=== PATIENT | female | born 1940 | race Caucasian/White ===

== ENCOUNTER → 2016-07-16 | Outpatient (CLI) | payer MEDICARE, OTHER ==
[~2016-07-16] MED LIST: ASCO500C14 PO; ASP81TEC PO; CHOL50003 PO; FLUT1DIS26 IH; LEVO125T PO; NAPR220T76 PO; SRTR100T PO; VITA100C15 PO
--- NOTE | 2016-07-16 14:34 | Diagnostic Imaging Report ---
PROCEDURE: CT chest without contrast. TECHNIQUE: Multiple contiguous axial images were obtained through the chest without the use of intravenous contrast. INDICATION: Lung nodule. Comparison made to study dated 06/09/2015. FINDINGS: There is a 5 mm nodule at the right posterior lung apex that appears unchanged compared to the prior study. There are some patchy alveolar infiltrates at both lung bases and in the lingular segment of the left upper lobe. These were all present previously and appear unchanged. There is no hilar or mediastinal lymphadenopathy. There is a calculus in the dorsal upper pole calyx of the right kidney. IMPRESSION: No change in the chest since 06/09/2015. Dictated by: Dictated on workstation # [id number]
== END | disposition home or self-care (01) ==
LOC: RAD 14:02
PROVIDERS: ATTEND Nurse Practitioner Family
DX: R91.1 Solitary pulmonary nodule (principal)
CPT/HCPCS: 71250

== ENCOUNTER 2017-04-02 22:16 | Emergency (ER) | payer MEDICARE, OTHER ==
[~2017-04-02] VITALS: Ht 165.1 cm; Wt 61.2 kg
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
[2017-04-03] MEDS ORDERED: HYDROcodone/APAP 5 MG/325 MG (LORTAB) TAB PO ONE (00:15)
[2017-04-03] MEDS ORDERED: RX-HYDROCODONE/APAP 5/325 MG #4 TAB PK PO PRN (00:15)
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
[2017-04-03] MEDS ORDERED: HYDR-3812 PO (00:26)
[2017-04-03 00:36] VITALS: BP 0/0
--- NOTE | 2017-04-03 07:45 | Diagnostic Imaging Report ---
INDICATION: Shoulder pain after fall. FINDINGS: Heart size is normal. Lungs are clear. There is some left basilar atelectasis and/or pneumonitis. There is no pleural effusion or pneumothorax. The mediastinum is unremarkable. There is a fracture of the left humeral head and neck. IMPRESSION: Left basilar atelectasis and/or pneumonitis. Mildly comminuted fracture of the left humeral head and neck which is slightly impacted. Dictated by: Dictated on workstation # [id number]
--- NOTE | 2017-04-03 07:59 | Diagnostic Imaging Report ---
INDICATION: Shoulder pain after fall. FINDINGS: There is a comminuted and slightly impacted fracture of the left humeral head and neck. AC joint is unremarkable. There is some left basilar atelectasis and/or pneumonitis. Soft tissues are unremarkable. IMPRESSION: Comminuted and slightly impacted fracture of the left humeral head and neck. Left basilar atelectasis and/or pneumonitis Dictated by: Dictated on workstation # [id number]
== END 2017-04-03 00:36 | disposition home or self-care (01) ==
LOC: EDUNIT# 22:16 → ER 22:18
DX: S42.202A Unspecified fracture of upper end of left humerus, initial encounter for closed fracture (principal); Z87.19 Personal history of other diseases of the digestive system; Z87.09 Personal history of other diseases of the respiratory system; Z79.82 Long term (current) use of aspirin; Z88.0 Allergy status to penicillin; W19.XXXA Unspecified fall, initial encounter
CPT/HCPCS: 71045; 73030

== ENCOUNTER → 2017-05-11 | Outpatient (CLI) | payer MEDICARE, OTHER ==
[~2017-05-11] MED LIST changes: +HYDR-3812 PO
--- NOTE | 2017-05-11 17:07 | Diagnostic Imaging Report ---
EXAMINATION: PA and lateral chest at 01:53 p.m. INDICATION: Pneumonia. FINDINGS: The heart size is within normal limits and stable when compared to 04/03/2017. The previous exam did note left lower lobe/lingular pneumonia/atelectasis. On this exam, the left heart border remains obscured by pneumonia/atelectasis. The reason for this poor clearing of the pneumonia/atelectasis from the left lung base since the prior exam is not certain. The possibility that there is an underlying neoplastic mass involving the left hilum should be considered. If further evaluation is desired, then CT of the chest will be recommended. The left upper lung and right lung are generally clear. The mediastinum is not widened. In the interval since the prior exam, the patient has undergone a surgical repair of the fracture of the surgical neck of the humerus. There is now an orthopedic plate and screw fixation device along the lateral aspect of the humeral head and proximal humerus. The osseous structures are otherwise intact. IMPRESSION: 1. There is persistent involvement of the left lung base and lingula by pneumonia/atelectasis. The reason for the poor clearing of the pneumonia/atelectasis is not certain, but the possibly that there is an underlying left hilar neoplastic mass should be considered. Recommendations as above. 2. There is no acute cardiopulmonary abnormality noted otherwise. 3. There has been an interval surgical repair of the fracture of the left humerus. Dictated by: Dictated on workstation # [id number]
== END ==
LOC: RAD 12:47
PROVIDERS: ATTEND Nurse Practitioner Family
DX: J18.9 Pneumonia, unspecified organism (principal); J44.9 Chronic obstructive pulmonary disease, unspecified; Z98.890 Other specified postprocedural states
CPT/HCPCS: 71046

== ENCOUNTER → 2017-07-20 | Outpatient (CLI) | payer MEDICARE, OTHER ==
--- NOTE | 2017-07-20 09:14 | Diagnostic Imaging Report ---
PROCEDURE: CT chest without contrast. TECHNIQUE: Multiple contiguous axial images were obtained through the chest without the use of intravenous contrast. INDICATION: COPD and followup pulmonary nodules. Comparison is made with prior CT chest from 07/16/2016. FINDINGS: No definite axillary lymphadenopathy is seen. Hilar and mediastinal evaluation is limited without intravenous contrast but no gross abnormality is seen. No pericardial or pleural fluid is identified. The previously seen nodule in the posterior right lung apex appears stable at 5-6 mm. Chronic appearing opacity in the lingular segment of the left lung is stable. Bilateral lower lobe chronic appearing opacities appear stable. A nodular density noted posterior medial right lower lobe on prior study is no longer appreciated. No new abnormalities are seen. Upper abdomen is stable. IMPRESSION: Overall stable noncontrast CT of the chest when compared with examination from one year earlier. Dictated by: Dictated on workstation # [id number]
== END ==
LOC: RAD 07:59
PROVIDERS: ATTEND Nurse Practitioner Family
DX: J44.9 Chronic obstructive pulmonary disease, unspecified (principal); R91.1 Solitary pulmonary nodule
CPT/HCPCS: 71250

== ENCOUNTER → 2018-05-30 | Outpatient (CLI) | payer MEDICARE, OTHER ==
--- NOTE | 2018-05-30 12:52 | Diagnostic Imaging Report ---
INDICATION: Routine screening. COMPARISON: Comparison is made with prior mammograms from 04/27/2015 and 02/20/2014. TECHNIQUE: 2D and 3D bilateral screening mammography was performed with computer-aided detection (CAD) system. FINDINGS: Both breasts are heterogeneously dense, limiting the sensitivity of mammography. Benign parenchymal and vascular calcifications are identified bilaterally. Nodular densities in both breasts appear stable. No mass or malignant-appearing microcalcifications are seen. Axillae are unremarkable. IMPRESSION: No mammographic features suspicious for malignancy are identified. ACR BI-RADS Category 2: Benign findings. Result letter will be mailed to the patient. Note: At least 10% of breast cancer is not imaged by mammography. Dictated by: Dictated on workstation # [id number]
== END ==
LOC: RAD 10:57
PROVIDERS: ATTEND Nurse Practitioner Family
DX: Z12.31 Encounter for screening mammogram for malignant neoplasm of breast (principal)
CPT/HCPCS: 77067

== ENCOUNTER → 2018-07-10 | Outpatient (CLI) | payer MEDICARE, OTHER ==
--- NOTE | 2018-07-10 10:04 | Diagnostic Imaging Report ---
PROCEDURE: CT chest without contrast. TECHNIQUE: Multiple contiguous axial images were obtained through the chest without the use of intravenous contrast. Auto Exposure Controls were utilized during the CT exam to meet ALARA standards for radiation dose reduction. INDICATION: Followup lung nodule. Patient has history of COPD and asthma. COMPARISON: Correlation is made with prior CT chest from 07/20/2017. FINDINGS: No axillary lymphadenopathy is seen. No definite hilar or mediastinal lymphadenopathy is identified. There appears to be some coronary arterial calcifications present. No pericardial or pleural fluid is identified. Right apical nodule is approximately 6 mm stable when compared with prior exam. Chronic opacity with bronchiectasis in the lingula is similar to prior exam. Patient has developed greater airspace consolidation with associated bronchiectasis in the left lower lobe since one year ago. There is some minimal nodular opacities in the right lower lobe and right middle lobe, stable when compared with prior exam. Upper abdomen is unremarkable. IMPRESSION: 1. Stable right upper lobe pulmonary nodule. This does show at least two years of stability and is consistent with benign etiology. 2. Chronic parenchymal densities bilaterally. However, there has been development of some airspace consolidation and bronchiectasis in the left lower lobe consistent with a more acute infectious/inflammatory process since examination one year earlier. Dictated by: Dictated on workstation # [id number]
== END ==
LOC: RAD 09:14
PROVIDERS: ATTEND Nurse Practitioner Family
DX: J44.9 Chronic obstructive pulmonary disease, unspecified (principal); J98.4 Other disorders of lung; J18.1 Lobar pneumonia, unspecified organism; R91.1 Solitary pulmonary nodule
CPT/HCPCS: 71250

== ENCOUNTER → 2018-07-19 | Outpatient (CLI) | payer MEDICARE, OTHER ==
[2018-07-19 11:37] LABS: BASOPHILS % (AUTO) 1 % (0-10); EOSINOPHILS # (AUTO) 0.1 10^3/uL (0.0-0.3); EOSINOPHILS % (AUTO) 4 % (0-10); HEMATOCRIT 46 % (35-52); LYMPHOCYTES # (AUTO) 1.2 X 10^3 (1.0-4.0); LYMPHOCYTES % (AUTO) 30 % (12-44); MEAN CORPUSCULAR HEMOGLOBIN 29 PG (25-34); MEAN CORPUSCULAR HGB CONC 33 G/DL (32-36); MEAN CORPUSCULAR VOLUME 89 FL (80-99); MEAN PLATELET VOLUME 9.6 FL (7.4-10.4); MONOCYTES # (AUTO) 0.6 X 10^3 (0.0-1.0); MONOCYTES % (AUTO) 14 % (0-12); NEUTROPHILS # (AUTO) 2.1 X 10^3 (1.8-7.8); NEUTROPHILS % (AUTO) 51 % (42-75); PLATELET COUNT 213 10^3/uL (130-400); RED CELL DISTRIBUTION WIDTH 14.7 % (10.0-14.5)
[2018-07-19 12:52] LABS: ALANINE AMINOTRANSFERASE 21 U/L (0-55); ALBUMIN 4.2 GM/DL (3.2-4.5); ALKALINE PHOSPHATASE 77 U/L (40-136); BILIRUBIN,TOTAL 0.4 MG/DL (0.1-1.0); BUN/CREATININE RATIO 14; CALCIUM 9.9 MG/DL (8.5-10.1); CARBON DIOXIDE 27 MMOL/L (21-32); CHLORIDE 103 MMOL/L (98-107); CREATININE SERUM 0.73 MG/DL (0.60-1.30); GFR ESTIMATED > 60; GLUCOSE 99 MG/DL (70-105); POTASSIUM 4.2 MMOL/L (3.6-5.0); SODIUM 142 MMOL/L (135-145); TOTAL PROTEIN 7.7 GM/DL (6.4-8.2)
== END ==
LOC: CARD 11:14
PROVIDERS: ATTEND Nurse Practitioner Family
DX: R07.9 Chest pain, unspecified (principal); M79.602 Pain in left arm
CPT/HCPCS: 36415; 80053; 84484; 85025; 93005

== ENCOUNTER → 2018-09-04 | Outpatient (CLI) | payer MEDICARE, OTHER ==
[2018-09-04 12:19] LABS: BASOPHILS # (AUTO) 0.1 10^3/uL (0.0-0.1); BASOPHILS % (AUTO) 1 % (0-10); EOSINOPHILS # (AUTO) 0.2 10^3/uL (0.0-0.3); EOSINOPHILS % (AUTO) 2 % (0-10); HEMATOCRIT 47 % (35-52); HEMOGLOBIN 15.8 G/DL (11.5-16.0); LYMPHOCYTES # (AUTO) 1.9 X 10^3 (1.0-4.0); LYMPHOCYTES % (AUTO) 24 % (12-44); MEAN CORPUSCULAR HEMOGLOBIN 30 PG (25-34); MEAN CORPUSCULAR HGB CONC 34 G/DL (32-36); MEAN CORPUSCULAR VOLUME 90 FL (80-99); MEAN PLATELET VOLUME 10.2 FL (7.4-10.4); MONOCYTES # (AUTO) 0.9 X 10^3 (0.0-1.0); MONOCYTES % (AUTO) 11 % (0-12); NEUTROPHILS % (AUTO) 62 % (42-75); PLATELET COUNT 231 10^3/uL (130-400); RED CELL DISTRIBUTION WIDTH 14.2 % (10.0-14.5)
== END ==
LOC: LAB 12:04
PROVIDERS: ATTEND Nurse Practitioner Family
DX: J30.9 Allergic rhinitis, unspecified (principal); G47.34 Idiopathic sleep related nonobstructive alveolar hypoventilation; J44.9 Chronic obstructive pulmonary disease, unspecified; R91.8 Other nonspecific abnormal finding of lung field
CPT/HCPCS: 36415; 85025

== ENCOUNTER → 2018-10-12 | Outpatient (CLI) | payer MEDICARE, OTHER ==
[~2018-10-12] MED LIST changes: +HOLD METFORMIN - RECEIVED CONTRAST 20 ML VIAL IV SCH; +IOHEXOL 350 MG/ML 100 ML (OMNIPAQUE 350) VIAL IV ONE; +NS 100 ML (IVPB) BAG IV ONE
[2018-10-12 10:29] LABS: BUN/CREATININE RATIO 20; CREATININE SERUM 0.71 MG/DL (0.60-1.30); GFR ESTIMATED > 60
--- NOTE | 2018-10-12 12:21 | Diagnostic Imaging Report ---
PROCEDURE: CT chest with contrast only. TECHNIQUE: Multiple contiguous axial images were obtained through the chest after administration of intravenous contrast. Auto Exposure Controls were utilized during the CT exam to meet ALARA standards for radiation dose reduction. INDICATION: Pulmonary nodule, followup. COMPARISON: Correlation is made with prior CT chest from 07/10/2018. FINDINGS: No axillary lymphadenopathy is detected. No mediastinal or hilar lymphadenopathy is identified. No pericardial or pleural fluid is detected. Previously noted right upper lobe partially calcified nodule is stable a 6 mm. There is a new slightly nodular density in the superior segment left lower lobe, image 56 measuring 6 mm. Chronic infiltrate and bronchiectasis in the lingula appears stable. Pneumonic infiltrate in the left lower lobe has improved when compared with study three months earlier. Chronic scarring or atelectasis right middle lobe is stable. Upper abdomen shows probable stone in the right kidney measuring 4 mm. IMPRESSION: 1. Chronic bibasilar infiltrates and bronchiectasis, similar to examination from 07/10/2018. There has been improved aeration of the left lower lobe since prior exam. There is a new noncalcified nodule in the superior segment left lower lobe measuring 6 mm. Followup to confirm stability would be recommended. Dictated by: Dictated on workstation # [id number]
== END ==
LOC: RAD 09:46
PROVIDERS: ATTEND Nurse Practitioner Family
DX: J44.9 Chronic obstructive pulmonary disease, unspecified (principal); J30.9 Allergic rhinitis, unspecified; G47.33 Obstructive sleep apnea (adult) (pediatric); G47.36 Sleep related hypoventilation in conditions classified elsewhere; R91.1 Solitary pulmonary nodule
CPT/HCPCS: 36415; 71260; 82565; 84520

== ENCOUNTER → 2018-10-25 | Outpatient (CLI) | payer MEDICARE, OTHER ==
[~2018-10-25] VITALS: Ht 160 cm; Wt 65.4 kg
[~2018-10-25] MED LIST changes: +CALC600T12 PO; +CETI10CA PO; +CHOL10007 PO; +FLUT9.9S NS; -HOLD METFORMIN - RECEIVED CONTRAST 20 ML VIAL IV SCH; -IOHEXOL 350 MG/ML 100 ML (OMNIPAQUE 350) VIAL IV ONE; +LEVO137T2 PO; -NS 100 ML (IVPB) BAG IV ONE; +PYRI250T8 PO; +RT-ALBUINH IH; +TIOT18CA2 IH
== END | disposition home or self-care (01) ==
LOC: PREOP 10-23 06:24
PROVIDERS: ATTEND Internal Medicine Critical Care Medicine
DX: Z01.818 Encounter for other preprocedural examination (principal)

== ENCOUNTER 2018-10-26 06:52 | Day surgery (SDC) | payer MEDICARE, OTHER ==
[~2018-10-26] VITALS: Ht 162 cm; Wt 65.4 kg
[2018-10-26] VITALS (10 sets, daily range): BP systolic 123–161; BP diastolic 57–79
[2018-10-26] MEDS ORDERED: LIDOCAINE PF 1% 2 ML VIAL IJ ONE (06:53)
[2018-10-26] MEDS ORDERED: LIDOCAINE PF 2% 5 ML (XYLOCAINE) VIAL INJ ONE (06:53)
[2018-10-26] MEDS ORDERED: LIDOCAINE JELLY 2% 6 ML SYRINGE MM ONE (06:53)
[2018-10-26] MEDS ORDERED: NS IV 500 ML 500 ML ONE (06:59)
[2018-10-26] MEDS ORDERED: NS IV 500 ML 500 ML IV PRN (07:01)
[2018-10-26] MEDS ORDERED: fentaNYL INJECTION 100 MCG/2 ML AMP IVP ONE (07:15)
[2018-10-26] MEDS ORDERED: MIDAZOLAM 2 MG/2 ML (VERSED) VIAL IVP ONE (07:15)
[2018-10-26] MEDS ORDERED: fentaNYL INJECTION 100 MCG/2 ML AMP ONE ×2 (07:24)
[2018-10-26] MEDS ORDERED: MIDAZOLAM 2 MG/2 ML (VERSED) VIAL ONE ×3 (07:25)
--- NOTE | 2018-10-26 07:37 | Progress Note-Pre Operative ---
Pre-Operative Progress Note H&P Reviewed The H&P was reviewed, patient examined and no changes noted. Time Seen by Provider: 07:37 Date H&P Reviewed: Oct 26, 2018 Time H&P Reviewed: 07:37 Pre-Operative Diagnosis: lung mass JESSICA HERNANDEZ DO Oct 26, 2018 07:37
--- NOTE | 2018-10-26 07:38 | Pre-Op Note & Conscious Sedat ---
Pre-Operative Progress Note H&P Reviewed The H&P was reviewed, patient examined and no changes noted. Date H&P Reviewed: Oct 26, 2018 Time H&P Reviewed: 07:37 Conscious Sedation Pre-Proced Time 07:37 ASA Score 3 For ASA 3 and 4: Consider anesthesia and medical clearance. Also, for patients with a history of failed moderate sedation consider anesthesia. Airway Lungs Heart ASA score ASA 1: a normal healthy patient ASA 2: a patient with a mild systemic disease (mid diabetes, controlled hypertension, obesity ASA 3: a patient with a severe systemic disease that limits activity (angina, COPD, prior Myocardial infarction) ASA 4: a patient with an incapacitating disease that is a constant threat to life (CHF, renal failure) ASA 5: a moribund patient not expected to survive 24 hrs. (ruptured aneurysm) ASA 6: a declared brain- patient whose organs are being harvested. For emergent operations, add the letter E after the classification Mallampati Classification Grade 3 Sedation Plan Analgesia, Amnesia, Plan communicated to team members, Discussed options with patient/fam, Discussed risks with patient/fam The patient is an appropriate candidate to undergo the planned procedure, sedation, and anesthesia. The patient immediately re-assessed prior to indication. JESSICA HERNANDEZ DO Oct 26, 2018 07:38
--- NOTE | 2018-10-26 08:05 | Pulmonary Procedures ---
Pulmonary Procedures Date of Procedure Date of Service: Oct 26, 2018 Bronch Bronchoscopy with Fluoroscopy LLL bronchoalveolar lavage (BAL), bilateral bronchial washes and, LLL transbronchial brushes. [place] x 2 of esther Preop DX lung nodule Postop DX: same - No endobronchial lesions Complications: none After informed consent obtained and formal time out pt was sedated using Fentanyl and Versed. Bronchoscope was advanced through the nare and vocal cords. 1% lidocaine was used to anesthetize vocal cords, epiglottis, esther, and left/right main stem bronchus. An anatomical tour was undertaken down to the segmental bronchi bilaterally. No endobronchial lesions noted. Bronchoscopy with Fluoroscopy LLL bronchoalveolar lavage (BAL), bilateral bronchial washes and, LLL transbronchial brushes. [place] x 2 of esther were obtained. Pt tolerated procedure well. No complications noted. Stat CXR is pending. JESSICA HERNANDEZ DO Oct 26, 2018 08:05
--- NOTE | 2018-10-26 08:39 | Diagnostic Imaging Report ---
INDICATION: Status post bronchoscopy. Time of exam: 8:09 AM Correlation is made with prior chest from 05/11/2017. Persistent infiltrate in the left base appears similar to prior exam. Otherwise, the lungs appear to be fairly clear. There is no effusion or pneumothorax identified. IMPRESSION: Persistent left basilar infiltrate. No pneumothorax is seen status post bronchoscopy. Dictated by: Dictated on workstation # [id number]
--- NOTE | 2018-10-26 12:26 | Diagnostic Imaging Report ---
INDICATION: Fluoroscopy for bronchoscopy. FINDINGS: Fluoroscopy was provided for Dr. Sierra during bronchoscopy. 14 seconds of fluoroscopy was utilized. IMPRESSION: Fluoroscopy for bronchoscopy. Dictated by: Dictated on workstation # [id number]
== END 2018-10-26 09:15 | disposition home or self-care (01) ==
LOC: ENDO 06:52
PROVIDERS: ATTEND Internal Medicine Critical Care Medicine
DX: J20.9 Acute bronchitis, unspecified (principal); J44.0 Chronic obstructive pulmonary disease with (acute) lower respiratory infection; R91.1 Solitary pulmonary nodule; M19.90 Unspecified osteoarthritis, unspecified site; E11.9 Type 2 diabetes mellitus without complications; G47.33 Obstructive sleep apnea (adult) (pediatric); Z88.0 Allergy status to penicillin; Z79.899 Other long term (current) drug therapy; Z79.51 Long term (current) use of inhaled steroids; Z80.1 Family history of malignant neoplasm of trachea, bronchus and lung; Z83.3 Family history of diabetes mellitus; Z90.710 Acquired absence of both cervix and uterus; Z80.0 Family history of malignant neoplasm of digestive organs
CPT/HCPCS: 71045; 87015; 87070; 87077; 87101; 87116; 87186; 87205; 87206; 94640

== ENCOUNTER → 2018-11-07 | Outpatient (CLI) | payer MEDICARE, OTHER ==
[2018-11-07 10:25] LABS: BASOPHILS # (AUTO) 0.1 10^3/uL (0.0-0.1); BASOPHILS % (AUTO) 1 % (0-10); EOSINOPHILS # (AUTO) 0.4 10^3/uL (0.0-0.3); EOSINOPHILS % (AUTO) 6 % (0-10); HEMATOCRIT 45 % (35-52); LYMPHOCYTES # (AUTO) 1.9 X 10^3 (1.0-4.0); LYMPHOCYTES % (AUTO) 30 % (12-44); MEAN CORPUSCULAR HEMOGLOBIN 31 PG (25-34); MEAN CORPUSCULAR HGB CONC 34 G/DL (32-36); MEAN CORPUSCULAR VOLUME 92 FL (80-99); MEAN PLATELET VOLUME 10.1 FL (7.4-10.4); MONOCYTES # (AUTO) 0.7 X 10^3 (0.0-1.0); MONOCYTES % (AUTO) 11 % (0-12); NEUTROPHILS # (AUTO) 3.3 X 10^3 (1.8-7.8); NEUTROPHILS % (AUTO) 53 % (42-75); PLATELET COUNT 207 10^3/uL (130-400); RED CELL DISTRIBUTION WIDTH 13.8 % (10.0-14.5); WHITE BLOOD COUNT 6.3 10^3/uL (4.3-11.0)
[2018-11-07 10:45] LABS: BUN/CREATININE RATIO 16; CALCIUM 9.3 MG/DL (8.5-10.1); CARBON DIOXIDE 26 MMOL/L (21-32); CHLORIDE 107 MMOL/L (98-107); CREATININE SERUM 0.79 MG/DL (0.60-1.30); GFR ESTIMATED > 60; GLUCOSE 96 MG/DL (70-105); POTASSIUM 4.1 MMOL/L (3.6-5.0); SODIUM 141 MMOL/L (135-145)
== END ==
LOC: LAB 10:14
PROVIDERS: ATTEND Internal Medicine Critical Care Medicine
DX: J30.9 Allergic rhinitis, unspecified (principal); J44.9 Chronic obstructive pulmonary disease, unspecified; G47.36 Sleep related hypoventilation in conditions classified elsewhere; J18.9 Pneumonia, unspecified organism; R91.1 Solitary pulmonary nodule
CPT/HCPCS: 36415; 80048; 85025

== ENCOUNTER → 2019-01-02 | Outpatient (CLI) | payer MEDICARE, OTHER ==
[2019-01-02 10:16] LABS: BASOPHILS # (AUTO) 0.1 10^3/uL (0.0-0.1); BASOPHILS % (AUTO) 2 % (0-10); EOSINOPHILS # (AUTO) 0.6 10^3/uL (0.0-0.3); EOSINOPHILS % (AUTO) 11 % (0-10); HEMATOCRIT 42 % (35-52); HEMOGLOBIN 14.1 G/DL (11.5-16.0); LYMPHOCYTES # (AUTO) 1.7 X 10^3 (1.0-4.0); LYMPHOCYTES % (AUTO) 33 % (12-44); MEAN CORPUSCULAR HEMOGLOBIN 31 PG (25-34); MEAN CORPUSCULAR HGB CONC 34 G/DL (32-36); MEAN CORPUSCULAR VOLUME 92 FL (80-99); MEAN PLATELET VOLUME 9.8 FL (7.4-10.4); MONOCYTES # (AUTO) 0.7 X 10^3 (0.0-1.0); MONOCYTES % (AUTO) 13 % (0-12); NEUTROPHILS % (AUTO) 41 % (42-75); PLATELET COUNT 247 10^3/uL (130-400); RED CELL DISTRIBUTION WIDTH 13.7 % (10.0-14.5)
[2019-01-02 10:39] LABS: BUN/CREATININE RATIO 14; CALCIUM 9.4 MG/DL (8.5-10.1); CARBON DIOXIDE 24 MMOL/L (21-32); CHLORIDE 108 MMOL/L (98-107); GFR ESTIMATED > 60; GLUCOSE 100 MG/DL (70-105); POTASSIUM 4.3 MMOL/L (3.6-5.0); SODIUM 143 MMOL/L (135-145)
== END ==
LOC: LAB 09:46
PROVIDERS: ATTEND Nurse Practitioner Family
DX: J44.9 Chronic obstructive pulmonary disease, unspecified (principal); J30.9 Allergic rhinitis, unspecified; J18.9 Pneumonia, unspecified organism; G47.36 Sleep related hypoventilation in conditions classified elsewhere; R91.1 Solitary pulmonary nodule
CPT/HCPCS: 36415; 80048; 82565; 84520; 85025

== ENCOUNTER → 2019-04-09 | Outpatient (CLI) | payer MEDICARE, OTHER ==
[~2019-04-09] MED LIST changes: +ACHD5005 PO; +HOLD METFORMIN - RECEIVED CONTRAST 20 ML VIAL IV SCH; -HYDR-3812 PO; +IOHEXOL 350 MG/ML 100 ML (OMNIPAQUE 350) VIAL IV ONE; +NS 100 ML (IVPB) BAG IV ONE
[2019-04-09 08:10] LABS: BUN/CREATININE RATIO 18; CREATININE SERUM 0.88 MG/DL (0.60-1.30); GFR ESTIMATED > 60
--- NOTE | 2019-04-09 09:34 | Diagnostic Imaging Report ---
PROCEDURE: CT chest with contrast only. TECHNIQUE: Multiple contiguous axial images were obtained through the chest after administration of intravenous contrast. Auto Exposure Controls were utilized during the CT exam to meet ALARA standards for radiation dose reduction. INDICATION: Follow-up pulmonary nodule. FINDINGS: The previous CT chest exam performed on 10/12/2018 noted chronic bibasilar infiltrates and bronchiectasis. These findings seem stable compared to the prior exam of 07/10/2018. Those parenchymal abnormalities are again evident on this exam and essentially no different. The previous study also noted a new noncalcified 6 mm pulmonary nodule in the superior segment of the left lower lobe. That finding is no longer identified on this exam. This may have represented a small focus of pneumonia/atelectasis which has subsequently resolved. The partially calcified 8 mm nodule in the right upper lobe seen previously is again evident and no different. There is no evidence of failure, pneumonia or for pleural effusion to indicate an acute abnormality. No other parenchymal abnormality is identified. The heart size is at the upper limits of normal but stable when compared to the prior study. Coronary artery calcifications are noted. The aorta is not abnormally dilated and there is no sign of dissection. There is no defect within the pulmonary arteries to indicate a pulmonary embolus. There is no mediastinal or hilar adenopathy. There is no obvious breast mass. The sections through the upper abdomen failed to show any sign of an acute abnormality. The 4 mm nonobstructing calculus within the right kidney seen on the prior study was not included on this exam. 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 The appearance of liver does suggest fatty metamorphosis. The bone windows are unremarkable for fracture or for destructive lesion. IMPRESSION: 1. The 6 mm nodular density in the superior segment of the left lower lobe seen on the prior exam is no longer evident. Most likely this was a small focus of pneumonia/atelectasis which has subsequently resolved. 2. The chronic pulmonary changes noted on the prior study are again evident and no different. There is no sign of an acute abnormality. Dictated by: Dictated on workstation # [id number]
== END ==
LOC: RAD 07:27
PROVIDERS: ATTEND Internal Medicine Critical Care Medicine
DX: J44.9 Chronic obstructive pulmonary disease, unspecified (principal); G47.36 Sleep related hypoventilation in conditions classified elsewhere; J18.9 Pneumonia, unspecified organism; R91.1 Solitary pulmonary nodule; J98.4 Other disorders of lung
CPT/HCPCS: 36415; 71260; 82565; 84520

== ENCOUNTER → 2019-07-03 | Outpatient (CLI) | payer MEDICARE, OTHER ==
[~2019-07-03] MED LIST changes: -HOLD METFORMIN - RECEIVED CONTRAST 20 ML VIAL IV SCH; -IOHEXOL 350 MG/ML 100 ML (OMNIPAQUE 350) VIAL IV ONE; -NS 100 ML (IVPB) BAG IV ONE
--- NOTE | 2019-07-03 13:07 | Diagnostic Imaging Report ---
Indication: Routine screening. Comparison is made with prior mammogram from 05/30/2018 and 04/29/2015. 2-D and 3-D bilateral screening mammography was performed with CAD. Both breasts remain heterogeneously dense, limiting the sensitivity of mammography. There are benign parenchymal and vascular calcifications bilaterally. Benign-appearing nodules both breasts are stable. No spiculated mass or malignant appearing microcalcifications are seen. Axillae are unremarkable. IMPRESSION: BI-RADS Category 2 No mammographic features suspicious for malignancy are identified. ACR BI-RADS Category 2: Benign findings. Result letter will be mailed to the patient. Note: At least 10% of breast cancer is not imaged by mammography. Dictated by: Dictated on workstation # [id number]
== END ==
LOC: RAD 10:45
PROVIDERS: ATTEND Nurse Practitioner Family
DX: Z12.31 Encounter for screening mammogram for malignant neoplasm of breast (principal)
CPT/HCPCS: 77063; 77067

== ENCOUNTER → 2020-04-14 | Outpatient (CLI) | payer MEDICARE, OTHER ==
[~2020-04-14] MED LIST changes: -CALC600T12 PO; +CLC600T PO
[2020-04-14 14:37] LABS: BASOPHILS # (AUTO) 0.1 10^3/uL (0.0-0.1); BASOPHILS % (AUTO) 1 % (0-10); EOSINOPHILS # (AUTO) 0.2 10^3/uL (0.0-0.3); EOSINOPHILS % (AUTO) 4 % (0-10); HEMATOCRIT 43 % (35-52); HEMOGLOBIN 14.1 g/dL (11.5-16.0); LYMPHOCYTES % (AUTO) 31 % (12-44); MEAN CORPUSCULAR HEMOGLOBIN 30 pg (25-34); MEAN CORPUSCULAR HGB CONC 33 g/dL (32-36); MEAN CORPUSCULAR VOLUME 93 fL (80-99); MONOCYTES # (AUTO) 0.7 10^3/uL (0.0-1.0); MONOCYTES % (AUTO) 11 % (0-12); NEUTROPHILS # (AUTO) 3.3 10^3/uL (1.8-7.8); NEUTROPHILS % (AUTO) 52 % (42-75); PLATELET COUNT 248 10^3/uL (130-400); WHITE BLOOD COUNT 6.3 10^3/uL (4.3-11.0)
--- NOTE | 2020-04-14 15:01 | Diagnostic Imaging Report ---
INDICATION: Asthma. TECHNIQUE: PA and lateral views of the chest are obtained with comparison made to study of 10/26/2018. FINDINGS: Heart size and pulmonary vascularity are within normal limits. There is pectus excavatum. Chronic infiltrate or scarring in the lingula is again noted. There is no evidence of new infiltrate, pneumothorax, or significant pleural fluid. IMPRESSION: Mild persistent lingular scarring or chronic infiltrate. No new abnormality or adverse change is seen. Dictated by: Dictated on workstation # [id number]
[2020-04-14 15:09] LABS: BAND NEUTROPHILS 2 %; BASOPHILS % (MANUAL) 1 %; EOSINOPHILS % (MANUAL) 4 %; LYMPHOCYTES % (MANUAL) 32 %; MONOCYTES % (MANUAL) 9 %; NEUTROPHILS % (MANUAL) 52 %; RBC MORPH NORMAL
== END ==
LOC: RAD 14:05
PROVIDERS: ATTEND Nurse Practitioner Family
DX: J45.909 Unspecified asthma, uncomplicated (principal)
CPT/HCPCS: 36415; 71046; 85007; 85027

== ENCOUNTER → 2020-09-12 | Outpatient (CLI) | payer MEDICARE, OTHER ==
[~2020-09-12] MED LIST changes: +CALC600T91 PO; -CLC600T PO
--- NOTE | 2020-09-12 12:14 | Diagnostic Imaging Report ---
EXAMINATION: US Abdomen limited. TECHNIQUE: Multiple real-time grayscale images were obtained over the right upper quadrant in various projections. REASON FOR EXAM: Right upper quadrant pain. COMPARISON: None. FINDINGS: The liver is normal in size and shape. The liver echogenicity is within normal limits. There are no focal lesions. No intrahepatic biliary dilatation is present. The common bile duct is not dilated and measures 5 mm. The main portal vein is hepatopedal. No ascites in the upper abdomen. There is no evidence of cholelithiasis, gallbladder wall thickening or pericholecystic fluid. Sonographic Lopez's sign is negative. The pancreas is not well-visualized due to overlying bowel gas. The visualized portions of the IVC and aorta appear normal. The right kidney measures approximately 9.6 cm in length and has a normal appearance. IMPRESSION: 1. No cholelithiasis or acute cholecystitis. No liver or gallbladder abnormality detected. Dictated by: Dictated on workstation # [id number]
== END ==
LOC: RAD 09:00
PROVIDERS: ATTEND Nurse Practitioner Family
DX: R10.11 Right upper quadrant pain (principal)
CPT/HCPCS: 76705

== ENCOUNTER → 2020-09-22 | Outpatient (CLI) | payer MEDICARE, OTHER ==
--- NOTE | 2020-09-22 11:03 | Diagnostic Imaging Report ---
EXAMINATION: Chest, 2 views. HISTORY: Cough. COMPARISON: 04/14/2020. FINDINGS: Heart size and pulmonary vasculature are normal. The lungs are clear without consolidation, pleural effusion, or pneumothorax. The osseous structures are intact. IMPRESSION: No acute radiographic abnormality in the chest. Dictated by: Dictated on workstation # [id number]
== END ==
LOC: RAD 10:31
PROVIDERS: ATTEND Nurse Practitioner Family
DX: R05 Cough (principal)
CPT/HCPCS: 71046

== ENCOUNTER → 2020-10-30 | Outpatient (CLI) | payer MEDICARE, OTHER ==
--- NOTE | 2020-10-30 16:03 | Diagnostic Imaging Report ---
INDICATION: Cough and shortness of breath. EXAMINATION: PA and lateral chest. FINDINGS: Left heart border is partially obscured suggesting some infiltrate or atelectasis in the lingular segment of the left upper lobe. Right lung is clear. There are no effusions or pneumothoraces. IMPRESSION: Questionable infiltrate/atelectasis in the lingular segment of the left upper lobe. This appears to date back to a CT done on 04/09/2019 which showed bronchiectasis and interstitial thickening in the lingular segment. Dictated by: Dictated on workstation # [id number]
--- NOTE | 2020-10-30 16:09 | Diagnostic Imaging Report ---
PROCEDURE: CT head without contrast. TECHNIQUE: Multiple contiguous axial images were obtained through the brain without the use of intravenous contrast. Auto Exposure Controls were utilized during the CT exam to meet ALARA standards for radiation dose reduction. INDICATION: Blurred vision, right-sided weakness The ventricles are normal in size, shape and position. There are no masses or hemorrhages. There are no extra-axial fluid collections. There are some inflammatory changes of the right maxillary sinus. There is a small area of decreased density in the left basal ganglia near the internal capsule corresponding to a small lacunar infarct seen on an old MRI dated 06/14/2014. Impression: Right maxillary sinusitis. No acute intracranial abnormality seen. Dictated by: Dictated on workstation # [id number]
== END ==
LOC: RAD 15:39
PROVIDERS: ATTEND Nurse Practitioner Family
DX: J32.0 Chronic maxillary sinusitis (principal); H53.8 Other visual disturbances; R53.1 Weakness; R06.02 Shortness of breath
CPT/HCPCS: 70450; 71046